=== PATIENT | male | born 1985 | race Caucasian/White ===

== ENCOUNTER 2021-03-16 13:22 | Emergency (ER) | payer BC, OTHER ==
[2021-03-16 13:42] VITALS: BP 149/98; PULSE 74; TEMP 98.2; BMI 42.8
== END 2021-03-16 15:09 | disposition home or self-care (01) ==
LOC: JER 13:22
DX: R07.9 Chest pain, unspecified (principal)
CPT/HCPCS: 71046-TC-FY; 93005; 93010; 99284-25